=== PATIENT | female | born 1975 | race Caucasian/White ===

== ENCOUNTER 2017-06-30 12:42 | Emergency (ER) | payer MEDICAID ==
[2017-06-30] MEDS: ACETAMINOPHEN 500 MG TAB PO (13:50)
[2017-06-30 13:52] LABS: URINE PH (Dip) POC 8.5 (5.0-8.5)
[2017-06-30 13:52] LABS: URINE BLOOD (Dip) POC Negative (NEGATIVE); URINE GLUCOSE (Dip) POC Negative (NEGATIVE); URINE KETONES (Dip) POC Negative (NEGATIVE); URINE LEUKOCYTE EST (Dip) POC Negative (NEGATIVE); URINE NITRITE (Dip) POC Negative (NEGATIVE); URINE TOTAL PROTEIN POC Negative (NEGATIVE)
== END 2017-06-30 14:50 | disposition home or self-care (01) ==
LOC: FTE 12:42
DX: J06.9 Acute upper respiratory infection, unspecified (principal)
CPT/HCPCS: 81003; 87880; 99283

== ENCOUNTER 2018-05-16 11:04 | Emergency (ER) | payer MEDICAID | END 2018-05-16 11:50 | disposition home or self-care (01) | LOC: FTE 11:04 | DX: J06.9 Acute upper respiratory infection, unspecified (principal) | CPT/HCPCS: 99283; Z7502 ==